=== PATIENT | male | born 1945 | race Hispanic/Latino ===

== ENCOUNTER 2018-03-30 07:41 | Outpatient (CLI) | payer MEDICARE ==
[2018-03-30] MEDS ORDERED: ISOVUE-370 76%-LOCM 1 ML ONE (14:44)
== END 2018-03-30 07:42 | disposition home or self-care (01) ==
LOC: BICCT 07:41
PROVIDERS: ATTEND Family Medicine
DX: R42 Dizziness and giddiness (principal); R01.1 Cardiac murmur, unspecified; I65.02 Occlusion and stenosis of left vertebral artery
CPT/HCPCS: 70498; 82565

== ENCOUNTER 2023-09-03 17:51 | Emergency (ER) | payer MEDICARE ==
[2023-09-03 18:26] LABS: Hematocrit 33.1 % (42.0-52.0); Hemoglobin 11.1 g/dL (14.0-18.0); Manual Diff?? YES; Mean Corpuscular HGB CONC 33.5 g/dL (32.0-36.0); Mean Corpuscular Hemoglobin 29.8 pg (27.0-31.0); Mean Platelet Volume 13.2 fL (7.4-10.4); Platelet Count 191 10x3/uL (130-400); RBC Distribution Width 13.2 % (11.5-14.5); Red Blood Cell (RBC) Count 3.72 mill/uL (4.70-6.10); White Blood Cell (WBC) Count 8.1 10x3/uL (4.8-10.8)
[2023-09-03 18:29] LABS: Delete Auto Diff?? YES
[2023-09-03 18:53] LABS: ALT (SGPT) Less than 7 U/L (8-55); AST (SGOT) 33 U/L (5-34); Albumin 4.2 g/dL (3.4-4.8); Alkaline Phosphatase 69 U/L (40-110); Anion Gap 13 mmol/L (10-20); BUN (Urea Nitrogen) 19 mg/dL (8.4-25.7); Bilirubin, Total 0.3 mg/dL (0.2-1.2); Calc. Creatinine Clearance 0 mL/min (70-130); Calcium 8.8 mg/dL (7.8-10.44); Carbon Dioxide 21 mmol/L (23-31); CellaVision Operator ID LAB.KB; Chloride 101 mmol/L (98-107); Eosinophils 2 % (0-10); Estimated GFR 87; Glucose 147 mg/dL (83-110); Lymphocytes 18 % (21-51); Monocytes 13 % (0-10); Neutrophil 61 % (42-75); Platelet Adequacy Comment Platelets Normal; Potassium 5.3 mmol/L (3.5-5.1); Protein, Total 8.2 g/dL (5.8-8.1); RBC Morphology Within Normal Limits; Reactive Lymphocytes 6 % (0-10); Sodium 130 mmol/L (136-145); Total Cell Count 100
[2023-09-03 18:59] LABS: Troponin I Less than 0.010 ng/mL (< 0.028)
[2023-09-03] MEDS ORDERED: Ketorolac Tromethamine 30 MG (1 mL) VIAL ONE (19:55)
== END 2023-09-03 20:04 | disposition home or self-care (01) ==
LOC: ERS 17:51
DX: R51.9 Headache, unspecified (principal); E11.9 Type 2 diabetes mellitus without complications; I10 Essential (primary) hypertension; Z79.84 Long term (current) use of oral hypoglycemic drugs; Z79.899 Other long term (current) drug therapy
CPT/HCPCS: 70450; 80053; 84484; 85025; 93005; 96372; J1885

== ENCOUNTER 2023-09-05 12:48 | Emergency (ER) | payer MEDICARE ==
[2023-09-05 16:06] LABS: Hematocrit 35.2 % (42.0-52.0); Hemoglobin 11.4 g/dL (14.0-18.0); Manual Diff?? YES; Mean Corpuscular HGB CONC 32.4 g/dL (32.0-36.0); Mean Corpuscular Hemoglobin 29.2 pg (27.0-31.0); Mean Corpuscular Volume 90.3 fl (78.0-98.0); Mean Platelet Volume 12.9 fL (7.4-10.4); Platelet Count 216 10x3/uL (130-400); RBC Distribution Width 13.3 % (11.5-14.5)
[2023-09-05 16:13] LABS: Delete Auto Diff?? YES
[2023-09-05 16:28] LABS: Anion Gap 11 mmol/L (10-20); BUN (Urea Nitrogen) 16 mg/dL (8.4-25.7); Calc. Creatinine Clearance 0 mL/min (70-130); Carbon Dioxide 23 mmol/L (23-31); Chloride 101 mmol/L (98-107); Estimated GFR 89; Glucose 133 mg/dL (83-110); Potassium 4.8 mmol/L (3.5-5.1); Sodium 130 mmol/L (136-145)
[2023-09-05 16:34] LABS: CellaVision Operator ID LAB.KB; Eosinophils 2 % (0-10); Large Platelets 27.5 % (0-5); Lymphocytes 20 % (21-51); Monocytes 4 % (0-10); Neutrophil 69 % (42-75); Platelet Adequacy Comment Platelets Normal; RBC Morphology Within Normal Limits; Reactive Lymphocytes 4 % (0-10); Smudge Cells 11.8 %; Total Cell Count 102
== END 2023-09-05 18:18 | disposition home or self-care (01) ==
LOC: ERS 12:48
DX: R51.9 Headache, unspecified (principal); E11.9 Type 2 diabetes mellitus without complications; I10 Essential (primary) hypertension; Z79.899 Other long term (current) drug therapy; Z79.84 Long term (current) use of oral hypoglycemic drugs
CPT/HCPCS: 36415; 80048; 85025; 86140; 99284

== ENCOUNTER 2023-10-31 07:37 | Emergency (ER) | payer MEDICARE ==
[2023-10-31] MEDS ORDERED: Morphine 4 MG/ML VIAL ONE (08:08)
[2023-10-31 08:21] LABS: Hematocrit 32.5 % (42.0-52.0); Hemoglobin 10.9 g/dL (14.0-18.0); Manual Diff?? YES; Mean Corpuscular HGB CONC 33.5 g/dL (32.0-36.0); Mean Corpuscular Hemoglobin 29.5 pg (27.0-31.0); Mean Corpuscular Volume 87.8 fl (78.0-98.0); Mean Platelet Volume 12.2 fL (7.4-10.4); Platelet Count 317 10x3/uL (130-400); RBC Distribution Width 13.8 % (11.5-14.5); White Blood Cell (WBC) Count 12.3 10x3/uL (4.8-10.8)
[2023-10-31 08:25] LABS: Delete Auto Diff?? YES
[2023-10-31 08:35] LABS: ALT (SGPT) 100 U/L (8-55); AST (SGOT) 79 U/L (5-34); Albumin 3.6 g/dL (3.4-4.8); Alkaline Phosphatase 389 U/L (40-110); Anion Gap 15 mmol/L (10-20); BUN (Urea Nitrogen) 14 mg/dL (8.4-25.7); Bilirubin, Total 1.9 mg/dL (0.2-1.2); Calc. Creatinine Clearance 0 mL/min (70-130); Calcium 9.2 mg/dL (7.8-10.44); Carbon Dioxide 21 mmol/L (23-31); Chloride 99 mmol/L (98-107); Estimated GFR 87; Globulin 3.7 g/dL (2.4-3.5); Glucose 170 mg/dL (83-110); Lipase 42 U/L (8-78); Potassium 3.9 mmol/L (3.5-5.1); Protein, Total 7.3 g/dL (5.8-8.1); Sodium 131 mmol/L (136-145)
[2023-10-31 08:49] LABS: CellaVision Operator ID LAB.KW3; Eosinophils 3 % (0-10); Large Platelets 12.2 % (0-5); Lymphocytes 15 % (21-51); Monocytes 12 % (0-10); Neutrophil 69 % (42-75); Platelet Adequacy Comment Platelets Normal; RBC Morphology Within Normal Limits; Total Cell Count 98
[2023-10-31] MEDS ORDERED: Piperacillin/Tazobactam 3.375 GM VIAL ONE (09:17)
[2023-10-31] MEDS ORDERED: Sodium Chloride 0.9% 100 ML ONE (09:17)
[2023-10-31] MEDS ORDERED: ISOVUE-370 76% MDV (1 ML CHARGE) ONE (10:39)
[2023-10-31 12:48] LABS: Bilirubin Negative (Negative); Blood, Urine Negative (Negative); Glucose, Urine (Dipstick) Negative (Negative); Ketone, Urine Negative (Negative); Leukocyte Negative (Negative); Nitrite Negative (Negative); Protein, Urine (Dipstick) Negative (Neg-Trace); pH, Urine 6.5 (5.0-9.0)
[2023-10-31 12:49] LABS: Clarity Clear (Clear); Specific Gravity, Urine 1.022 (1.002-1.036)
[2023-10-31 12:57] LABS: Bacteria/HPF None Seen HPF (None Seen); CAUTI Indications for Culture Dysuria,urgency,freq; RBC/HPF 0-3 HPF (0-3); Squamous Epithelial None Seen HPF (0-3); WBC/HPF 0-3 HPF (0-3)
[2023-10-31 13:01] LABS: Urine Culture Reflex No No
== END 2023-10-31 13:14 | disposition short-term general hospital (02) ==
LOC: ERS 07:37
DX: K82.A2 Perforation of gallbladder in cholecystitis (principal); K83.3 Fistula of bile duct; J85.2 Abscess of lung without pneumonia; E11.9 Type 2 diabetes mellitus without complications; I10 Essential (primary) hypertension; Z86.73 Personal history of transient ischemic attack (TIA), and cerebral infarction without residual deficits; Z79.84 Long term (current) use of oral hypoglycemic drugs; Z79.899 Other long term (current) drug therapy
CPT/HCPCS: 36415; 74177; 76705; 80053; 81001; 83690; 85025; 87040; 96361; 96365; 96375; J2270; J2543; J3490